=== PATIENT | female | born 1980 | race Caucasian/White ===

== ENCOUNTER 2017-09-05 16:18 | Inpatient (IN) | payer OTHER ==
[2017-09-05 17:24] VITALS: BMI 18.0
--- NOTE | 2017-09-05 18:57 | HP ---
COWS - Scale Resting Pulse: 0= [place] 80 or Below Sweatin=Flushed/Facial Moisture Restless Observation: 1= Difficult to Sit Still Pupil Size: 1= Pupils >than Normal Bone or Joint Aches: 1= Mild Discomfort Runny Nose/ Eye Tearin= Nasal Congestion GI Upset > 30mins: 0= None Tremor Observation: 1= Tremor [place], Not Seen Yawning Observation: 2= >3x During Session Anxiety or Irritability: 2=Irritable/Anxious Goose Flesh Skin: 3=Piloerection COWS Score: 14 Admission ROS S - HPI Chief Complaint: "I am here heroin detox" Allergies/Adverse Reactions: Allergies Allergy/AdvReac Type Severity Reaction Status Date / Time No Known Drug Allergies Allergy Verified 09/05/17 17:33 History of Present Illness: 37 y/o female with a 6 year history of heroin addiction presents for detox. This is pt's first visit. Has one year of sobriety x "a long time ago". Hx of depression, denies any medical hx Exam Limitations: Other (very Sleepy) - Ebola screening Have you traveled outside of the country in the last 21 days: No Have you had contact with anyone from an Ebola affected area: No Have you been sick,other than usual withdrawal symptoms: No Do you have a fever: No - Review of Systems Constitutional: Unintentional Wgt. Loss EENT: reports: Nose Congestion, Other (short sighted, wears glasses) Respiratory: reports: No Symptoms reported Cardiac: reports: No Symptoms Reported GI: reports: No Symptoms Reported Musculoskeletal: reports: No Symptoms Reported Integumentary: reports: No Symptoms Reported, Other (healed cut walter to L arm, track walter in both arms) Neuro: reports: Tremors Hematology: reports: No Symptoms Reported Psychiatric: reports: Agitated, Depressed Other Systems: Reviewed and Negative Patient History - Patient Medical History Hx Anemia: No Hx Asthma: No Hx Chronic Obstructive Pulmonary Disease (COPD): No Hx Cancer: No Hx Cardiac Disorders: No Hx Congestive Heart Failure: No Hx Hypertension: No Hx Hypercholesterolemia: No Hx Pacemaker: No HX Cerebrovascular Accident: No Hx Seizures: No Hx Dementia: No Hx Diabetes: No Hx Gastrointestinal Disorders: No Hx Liver Disease: No Hx Genitourinary Disorders: No Hx Sexually Transmitted Disorders: No Hx Renal Disease (ESRD): No Hx Thyroid Disease: No Hx Human Immunodeficiency Virus (HIV): No Hx Hepatitis C: No Hx Depression: Yes Hx Suicide Attempt: Yes (2007, denies current idea nor attempt) Hx Bipolar Disorder: Yes (bipolar II) Hx Schizophrenia: No - Patient Surgical History Past Surgical History: No Hx Neurologic Surgery: No Hx Cataract Extraction: No Hx Cardiac Surgery: No Hx Lung Surgery: No Hx Breast Surgery: No Hx Breast Biopsy: No Hx Abdominal Surgery: No Hx Appendectomy: No Hx Cholecystectomy: No Hx Genitourinary Surgery: No Hx Section: No Hx Orthopedic Surgery: No Anesthesia Reaction: No - PPD History Previous Implant?: Yes Documented Results: Negative w/o proof Implanted On Prior R Admission?: No PPD to be Administered?: Yes - Reproductive History Patient is a Female of Child Bearing Age (11 -55 yrs old): Yes Patient : No - Smoking Cessation Smoking history: Current every day smoker Aproximately how many cigarettes per day: 20 Initiated information on smoking cessation: Yes 'Breaking Loose' booklet given: 09/05/17 - Substance & Tx. History Hx Alcohol Use: No Hx Substance Use: Yes Substance Use Type: Cocaine, Heroin, Marijuana - Substances Abused Heroin Route: Injection Frequency: Daily Amount used: 6-10 bags Age of first use: 30 Date of Last Use: 09/05/17 Crack Route: Smoking Frequency: 1-2 times per week Amount used: 2-3 bags Age of first use: 35 Date of Last Use: 09/02/17 Marijuana/Hashish Route: Smoking Frequency: Daily Amount used: 3 sticks Age of first use: 14 Date of Last Use: 09/04/17 Family Disease History - Family Disease History Family History: Unremarkable Admission Physical Exam [facility] - Vital Signs Vital Signs: Vital Signs - 24 hr 09/05/17 17:21 Temperature 98.9 F Pulse Rate 60 Respiratory 18 Rate Blood Pressure 135/84 - Physical General Appearance: Yes: Moderate Distress, Thin, Irritable HEENTM: Yes: Nasal Congestion Respiratory: Yes: Lungs Clear, Normal Breath Sounds, No Respiratory Distress, No Accessory Muscle Use Breast: Yes: Breast Exam Deferred Cardiology: Yes: Regular Rate Abdominal: Yes: Normal Bowel Sounds, Non Tender, Flat Genitourinary: Yes: Within Normal Limits Back: Yes: Within Normal Limits, Normal Inspection Musculoskeletal: Yes: full range of Motion, Gait Steady Integumentary: Yes: Track Walter (b/l arms), Other (healed cuttting scars) Lymphatic: Yes: Within Normal Limits Cleared for Admission S - Detox or Rehab [facility] Level of Care: Medically Managed Detox Regimen/Protocol: Methadone S Breath Alcohol Content Breath Alcohol Content: 0 Vital Signs - Vital Signs Vital Signs Refused: No Temperature: 98.9 F Temperature Source: Oral Pulse Rate: 60 Respiratory Rate: 17 Blood Pressure: 135/89 BP Location: Right Arm Blood Pressure Position: Sitting - Height Height: 5 ft 7 in - Weight Weight: 115 lb Weight Measurement Method: Standing Scale Body Mass Index (BMI): 18.0 Urine Pregancy Test - Result Urine Test Results: Negative- NO Line Present Urine Drug Screen - Results Drug Screen Negative: No Urine Drug Screen Results: THC-Marijuana, FREDRICK-Cocaine, OPI-Opiates, BZO- Benzodiazepines
[2017-09-05] MEDS ORDERED: LOPERAMIDE HCL 2 MG CAPSULE PO PRN (19:24)
[2017-09-05] MEDS ORDERED: guaiFENesin/D-METHORPHAN HB 10 ML UNIT-DOSE CUPS PO PRN (19:24)
[2017-09-05] MEDS ORDERED: NICOTINE POLACRILEX 2 MG GUM BUC PRN (19:24)
[2017-09-05] MEDS ORDERED: P-EPHED 60MG/TRIPROLIDI 2.5MG TABLET PO PRN (19:24)
[2017-09-05] MEDS ORDERED: MAGNESIUM CITRATE 300 ML BOTTLE PO PRN (19:24)
[2017-09-05] MEDS ORDERED: METHADONE HCL 10 MG TABLET (FOR DETOX USE ONLY) PO ONE ×2 (19:24→23:00)
[2017-09-05] MEDS ORDERED: ACETAMINOPHEN 325 MG TABLET (FP) PO PRN (19:24)
[2017-09-05] MEDS ORDERED: MENTHOL/PHENOL 1 EACH UD MM PRN (19:24)
[2017-09-05] MEDS ORDERED: MAGNESIUM HYDROX 2400MG/30ML ORAL SUSPENSION 30 ML CUP PO PRN (19:24)
[2017-09-05] MEDS ORDERED: IBUPROFEN 400 MG TABLET (FP) PO PRN (19:24)
[2017-09-05] MEDS ORDERED: MAG HYDROX/AL HYDROX/SIMETH 30 ML UNIT-DOSE CUP PO PRN (19:24)
[2017-09-05] MEDS ORDERED: METHADONE HCL 10 MG TABLET (FOR DETOX USE ONLY) ONE (23:27)
[2017-09-05] MEDS: NICOTINE 21 MG/24 HOURS TOPICAL PATCH TD SCH (23:38)
[2017-09-05] MEDS: THIAMINE HCL 100 MG TABLET (FP) PO SCH (23:39)
[2017-09-06] LABS: URINE APPEARANCE CLEAR; URINE BILIRUBIN NEGATIVE (NEGATIVE); URINE BLOOD NEGATIVE (NEGATIVE); URINE COLOR STRAW; URINE GLUCOSE (UA) NEGATIVE (NEGATIVE); URINE KETONE NEGATIVE (NEGATIVE); URINE LEUK ESTERASE NEGATIVE (NEGATIVE); URINE NITRITE NEGATIVE (NEGATIVE); URINE PROTEIN NEGATIVE (NEGATIVE); URINE UROBILINOGEN NEGATIVE mg/dL (0.2-1.0)
[2017-09-06] MEDS ORDERED: METHADONE HCL 10 MG TABLET (FOR DETOX USE ONLY) PO ONE (10:00)
[2017-09-06 10:08] LABS: HEMATOCRIT 38.5 % (32.4-45.2); HEMOGLOBIN 13.1 GM/dL (10.7-15.3); MCH 29.2 pg (25.7-33.7); MEAN CELL VOLUME 85.8 fl (80-96); MEAN PLT VOLUME 8.6 fl (7.5-11.1); PLATELET COUNT 238 K/MM3 (134-434); RBC 4.49 M/mm3 (3.60-5.2); RDW 13.4 % (11.6-15.6); WHITE BLOOD COUNT 7.2 K/mm3 (4.0-10.0)
[2017-09-06 10:15] LABS: CHLORIDE 108 mmol/L (98-107); POTASSIUM 4.2 mmol/L (3.5-5.1); SODIUM 140 mmol/L (136-145)
[2017-09-06 10:21] LABS: ALBUMIN 3.5 g/dl (3.4-5.0); ALK PHOS 82 U/L (45-117); ANION GAP 6 (8-16); BILIRUBIN,TOTAL 0.6 mg/dL (0.2-1.0); BLOOD UREA NITROGEN 8 mg/dL (7-18); CALCIUM 8.2 mg/dL (8.5-10.1); CO2 26 mmol/L (21-32); CREATININE 0.6 mg/dL (0.55-1.02); GLUCOSE,RANDOM 90 mg/dL (74-106); SGOT/AST 46 U/L (15-37); SGPT/ALT 54 U/L (12-78); TOT PROT 6.6 g/dl (6.4-8.2)
--- NOTE | 2017-09-06 10:27 | PN ---
[facility] COWS - Scale Resting Pulse: 0= [place] 80 or Below Sweatin= Chills/Flushing Restless Observation: 1= Difficult to Sit Still Pupil Size: 1= Pupils >than Normal Bone or Joint Aches: 2= Severe Diffuse Aches Runny Nose/ Eye Tearin= Runny Nose/Eyes GI Upset > 30mins: 1= Stomach Cramp Tremor Observation of Outstretched Hands: 1= Tremor [place], Not Seen Yawning Observation: 2= >3x During Session Anxiety or Irritability: 2=Irritable/Anxious Goose Flesh Skin: 0=Smooth Skin COWS Score: 13 S Progress Note (SOAP) Subjective: sweat restlessness running nose body ache GI distress Objective: 09/06/17 10:30 Vital Signs Temperature 97.2 F L 09/06/17 06:32 Pulse Rate 46 L 09/06/17 06:32 Respiratory Rate 16 09/06/17 06:32 Blood Pressure 138/65 09/06/17 06:32 O2 Sat by Pulse Oximetry (%) Laboratory Last Values WBC 7.2 K/mm3 (4.0-10.0) 09/06/17 07:00 RBC 4.49 M/mm3 (3.60-5.2) 09/06/17 07:00 Hgb 13.1 GM/dL (10.7-15.3) 09/06/17 07:00 Hct 38.5 % (32.4-45.2) 09/06/17 07:00 MCV 85.8 fl (80-96) 09/06/17 07:00 MCH 29.2 pg (25.7-33.7) 09/06/17 07:00 MCHC 34.0 g/dl (32.0-36.0) 09/06/17 07:00 RDW 13.4 % (11.6-15.6) 09/06/17 07:00 Plt Count 238 K/MM3 (134-434) 09/06/17 07:00 MPV 8.6 fl (7.5-11.1) 09/06/17 07:00 Sodium 140 mmol/L (136-145) 09/06/17 07:00 Potassium 4.2 mmol/L (3.5-5.1) 09/06/17 07:00 Chloride 108 mmol/L (98-107) H 09/06/17 07:00 Carbon Dioxide 26 mmol/L (21-32) 09/06/17 07:00 Anion Gap 6 (8-16) L 09/06/17 07:00 BUN 8 mg/dL (7-18) 09/06/17 07:00 Creatinine 0.6 mg/dL (0.55-1.02) 09/06/17 07:00 Creat Clearance w eGFR > 60 (>60) 09/06/17 07:00 Random Glucose 90 mg/dL (74-106) 09/06/17 07:00 Calcium 8.2 mg/dL (8.5-10.1) L 09/06/17 07:00 Total Bilirubin 0.6 mg/dL (0.2-1.0) 09/06/17 07:00 AST 46 U/L (15-37) H 09/06/17 07:00 ALT 54 U/L (12-78) 09/06/17 07:00 Alkaline Phosphatase 82 U/L (45-117) 09/06/17 07:00 Total Protein 6.6 g/dl (6.4-8.2) 09/06/17 07:00 Albumin 3.5 g/dl (3.4-5.0) 09/06/17 07:00 Urine Color Straw 09/05/17 20:00 Urine Appearance Clear 09/05/17 20:00 Urine pH 6.0 (5.0-8.0) 09/05/17 20:00 Ur Specific [place] 1.008 (1.001-1.035) 09/05/17 20:00 Urine Protein Negative (NEGATIVE) 09/05/17 20:00 Urine Glucose (UA) Negative (NEGATIVE) 09/05/17 20:00 Urine Ketones Negative (NEGATIVE) 09/05/17 20:00 Urine Blood Negative (NEGATIVE) 09/05/17 20:00 Urine Nitrite Negative (NEGATIVE) 09/05/17 20:00 Urine Bilirubin Negative (NEGATIVE) 09/05/17 20:00 Urine Urobilinogen Negative mg/dL (0.2-1.0) 09/05/17 20:00 Ur Leukocyte Esterase Negative (NEGATIVE) 09/05/17 20:00 lab noted Assessment: 09/06/17 10:30 withdrawal sx Plan: continue detox
[2017-09-06] MEDS: PRENATAL VITAMINS W/ FOLIC ACID TABLET (FP) PO SCH (10:52)
[2017-09-06] MEDS: diazePAM 5 MG TABLET PO PRN ×2 (10:52→20:13)
[2017-09-06] MEDS: NICOTINE 21 MG/24 HOURS TOPICAL PATCH TD SCH (10:53)
--- NOTE | 2017-09-06 11:04 | CONSULT ---
[facility] Psychiatric Consult - Data Date of interview: 09/06/17 Admission source: [facility] Identifying data: This is 37 years old female, single, unemoployed, living alone , on PA, with no psychiatric hospitalization history, is here for detoxofications with Cocaine, Heroin, Cannabis and Nicotine. This is first detoxification visit for this patient. Substance Abuse History: Smoking history: Current every day smoker. Aproximately how many cigarettes per day: 20. Initiated information on smoking cessation: Yes. 'Breaking Loose' booklet given: 09/05/17. - Substance & Tx. History. Hx Alcohol Use: No. Hx Substance Use: Yes. Substance Use Type: Cocaine, Heroin, Marijuana. - Substances Abused. Heroin. Route: Injection. Frequency: Daily. Amount used: 6-10 bags. Age of first use: 30. Date of Last Use: 09/05/17. Crack. Route: Smoking. Frequency: 1-2 times per week. Amount used: 2-3 bags. Age of first use: 35. Date of Last Use: 02/12. Marijuana/Hashish. Route: Smoking. Frequency: Daily. Amount used: 3 sticks. Age of first use: 14. Date of Last Use: 09/04/17 Medical History: Denies significant medical problems Psychiatric History: Patient reports no past psychiatric history Physical/Sexual Abuse/Trauma History: Denies, unclear Additional Comment: Observation. Detox Unit Carte Protocol Mental Status Exam - Mental Status Exam Alert and Oriented to: Person Cognitive Function: Fair Patient Appearance: Unkempt Mood: Sad Affect: Flat Patient Behavior: Sedated Speech Pattern: Delayed Voice Loudness: Moderately Soft/Quiet Thought Process: Circumstantial Thought Disorder: Being Controlled Hallucinations: Denies Suicidal Ideation: Denies Homicidal Ideation: Denies Insight/Judgement: Fair Sleep: Difficulty falling asleep Appetite: Weight loss Muscle strength/Tone: Mild Hypotonicity Gait/Station: Shuffling Additional Comments: Observation. Detox Unit Care Protocol Psychiatric Findings - Problem List ([place] 1, 2,3) (1) Drug-induced mood disorder Current Visit: Yes Status: Acute (2) Cocaine dependence Current Visit: Yes Status: Acute (3) Marijuana dependence Current Visit: Yes Status: Acute (4) Nicotine dependence Current Visit: Yes Status: Acute (5) Uncomplicated opioid dependence Current Visit: Yes Status: Acute - Initial Treatment Plan Initial Treatment Plan: Observation. Detox Unit Care Protocol
[2017-09-06] MEDS ORDERED: ONDANSETRON *ODT* 4 MG TABLET SL PRN (11:54)
--- NOTE | 2017-09-06 16:07 | EKG ---
Test Reason : Blood Pressure : / mmHG Vent. Rate : 047 BPM Atrial Rate : 047 BPM P-R Int : 134 ms QRS Dur : 088 ms QT Int : 450 ms P-R-T Axes : 059 067 056 degrees QTc Int : 398 ms SINUS BRADYCARDIA WITH SINUS ARRHYTHMIA OTHERWISE NORMAL ECG NO PREVIOUS ECGS AVAILABLE Confirmed by ALEXANDRIA MCKEON MD ([id number]) on 09/06/2017 4:06:48 PM Referred By: Michel Bhatia Confirmed By:ALEXANDRIA MCKEON MD
[2017-09-06] MEDS: THIAMINE HCL 100 MG TABLET (FP) PO SCH (22:41)
[2017-09-06] MEDS: hydrOXYzine PAMOATE 50 MG CAPSULE (FP) PO PRN (22:41)
[2017-09-07] MEDS ORDERED: METHADONE HCL 5 MG TABLET (FOR DETOX USE ONLY) PO ONE (10:00)
[2017-09-07] MEDS: METHOCARBAMOL 500 MG TABLET PO PRN ×2 (10:19→22:37)
[2017-09-07] MEDS: PRENATAL VITAMINS W/ FOLIC ACID TABLET (FP) PO SCH (10:19)
[2017-09-07] MEDS: diazePAM 5 MG TABLET PO PRN ×4 (10:19→23:18)
[2017-09-07] MEDS: NICOTINE 21 MG/24 HOURS TOPICAL PATCH TD SCH (10:20)
[2017-09-07] MEDS ORDERED: ASPIRIN 81 MG CHEWABLE TABLETS PO SCH (12:00)
--- NOTE | 2017-09-07 12:03 | PN ---
[facility] CIWA - CIWA Score Nausea/Vomitin-Mild Nausea/No Vomiting Muscle Tremors: 3 Anxiety: 3 Agitation: 3 Paroxysmal Sweats: 1-Minimal Palms Moist Orientation: 0-Oriented Tacttile Disturbances: 0-None Auditory Disturbances: 0-None Visual Disturbances: 0-None Headache: 0-None Present CIWA-Ar Total Score: 11 S Progress Note (SOAP) Subjective: sweat tremor anxiety irritable restlessness mild gi distress Objective: 09/07/17 12:02 Vital Signs Temperature 97.9 F 09/07/17 10:15 Pulse Rate 64 09/07/17 10:15 Respiratory Rate 16 09/07/17 10:15 Blood Pressure 113/66 09/07/17 10:15 O2 Sat by Pulse Oximetry (%) Laboratory Last Values WBC 7.2 K/mm3 (4.0-10.0) 09/06/17 07:00 RBC 4.49 M/mm3 (3.60-5.2) 09/06/17 07:00 Hgb 13.1 GM/dL (10.7-15.3) 09/06/17 07:00 Hct 38.5 % (32.4-45.2) 09/06/17 07:00 MCV 85.8 fl (80-96) 09/06/17 07:00 MCH 29.2 pg (25.7-33.7) 09/06/17 07:00 MCHC 34.0 g/dl (32.0-36.0) 09/06/17 07:00 RDW 13.4 % (11.6-15.6) 09/06/17 07:00 Plt Count 238 K/MM3 (134-434) 09/06/17 07:00 MPV 8.6 fl (7.5-11.1) 09/06/17 07:00 Sodium 140 mmol/L (136-145) 09/06/17 07:00 Potassium 4.2 mmol/L (3.5-5.1) 09/06/17 07:00 Chloride 108 mmol/L (98-107) H 09/06/17 07:00 Carbon Dioxide 26 mmol/L (21-32) 09/06/17 07:00 Anion Gap 6 (8-16) L 09/06/17 07:00 BUN 8 mg/dL (7-18) 09/06/17 07:00 Creatinine 0.6 mg/dL (0.55-1.02) 09/06/17 07:00 Creat Clearance w eGFR > 60 (>60) 09/06/17 07:00 Random Glucose 90 mg/dL (74-106) 09/06/17 07:00 Calcium 8.2 mg/dL (8.5-10.1) L 09/06/17 07:00 Total Bilirubin 0.6 mg/dL (0.2-1.0) 09/06/17 07:00 AST 46 U/L (15-37) H 09/06/17 07:00 ALT 54 U/L (12-78) 09/06/17 07:00 Alkaline Phosphatase 82 U/L (45-117) 09/06/17 07:00 Total Protein 6.6 g/dl (6.4-8.2) 09/06/17 07:00 Albumin 3.5 g/dl (3.4-5.0) 09/06/17 07:00 Urine Color Straw 09/05/17 20:00 Urine Appearance Clear 09/05/17 20:00 Urine pH 6.0 (5.0-8.0) 09/05/17 20:00 Ur Specific [place] 1.008 (1.001-1.035) 09/05/17 20:00 Urine Protein Negative (NEGATIVE) 09/05/17 20:00 Urine Glucose (UA) Negative (NEGATIVE) 09/05/17 20:00 Urine Ketones Negative (NEGATIVE) 09/05/17 20:00 Urine Blood Negative (NEGATIVE) 09/05/17 20:00 Urine Nitrite Negative (NEGATIVE) 09/05/17 20:00 Urine Bilirubin Negative (NEGATIVE) 09/05/17 20:00 Urine Urobilinogen Negative mg/dL (0.2-1.0) 09/05/17 20:00 Ur Leukocyte Esterase Negative (NEGATIVE) 09/05/17 20:00 RPR Titer Nonreactive (NONREACTIVE) 09/06/17 07:00 lab noted Assessment: 09/07/17 12:02 withdrawal sx Plan: continue detox
[2017-09-07] MEDS: hydrOXYzine PAMOATE 50 MG CAPSULE (FP) PO PRN (22:37)
[2017-09-07] MEDS: THIAMINE HCL 100 MG TABLET (FP) PO SCH (22:37)
[2017-09-08] MEDS: diazePAM 5 MG TABLET PO PRN (07:17)
[2017-09-08] MEDS ORDERED: METHADONE HCL 5 MG TABLET (FOR DETOX USE ONLY) PO ONE (10:00)
[2017-09-08 10:53] VITALS: BP 139/98; PULSE 74; TEMP 97.3
--- NOTE | 2017-09-08 12:28 | DS ---
[facility] Detox Discharge Summary Admission Date: 09/05/17 Discharge Date: 09/08/17 - History Present History: Opioid Dependence Additional Comments: 37 years old female admitted for opiates detox, insists to terminate the detox regimen today patient is alert oriented x 3 steady gait coherent denies suicidal denies homocidal health teaching on the complications of opiate misuse and the benefit of healthy life style patient denies medical history cardiac S1S2 no gallops pulmonary clear bilaterally chest symmetry with respirations, no wheezes, no diaphragmatic excursion abdomen soft no tenderness no rebound none costovertebral angle tenderness musculoskeletal stable no weakness - Physical Exam Results Vital Signs: Vital Signs Temperature 97.3 F L 09/08/17 10:53 Pulse Rate 74 09/08/17 10:53 Respiratory Rate 18 09/08/17 10:53 Blood Pressure 139/98 09/08/17 10:53 O2 Sat by Pulse Oximetry (%) Pertinent Admission Physical Exam Findings: withdrawal sx Vital Signs Temperature 97.3 F L 09/08/17 10:53 Pulse Rate 74 09/08/17 10:53 Respiratory Rate 18 09/08/17 10:53 Blood Pressure 139/98 09/08/17 10:53 O2 Sat by Pulse Oximetry (%) Laboratory Last Values WBC 7.2 K/mm3 (4.0-10.0) 09/06/17 07:00 RBC 4.49 M/mm3 (3.60-5.2) 09/06/17 07:00 Hgb 13.1 GM/dL (10.7-15.3) 09/06/17 07:00 Hct 38.5 % (32.4-45.2) 09/06/17 07:00 MCV 85.8 fl (80-96) 09/06/17 07:00 MCH 29.2 pg (25.7-33.7) 09/06/17 07:00 MCHC 34.0 g/dl (32.0-36.0) 09/06/17 07:00 RDW 13.4 % (11.6-15.6) 09/06/17 07:00 Plt Count 238 K/MM3 (134-434) 09/06/17 07:00 MPV 8.6 fl (7.5-11.1) 09/06/17 07:00 Sodium 140 mmol/L (136-145) 09/06/17 07:00 Potassium 4.2 mmol/L (3.5-5.1) 09/06/17 07:00 Chloride 108 mmol/L (98-107) H 09/06/17 07:00 Carbon Dioxide 26 mmol/L (21-32) 09/06/17 07:00 Anion Gap 6 (8-16) L 09/06/17 07:00 BUN 8 mg/dL (7-18) 09/06/17 07:00 Creatinine 0.6 mg/dL (0.55-1.02) 09/06/17 07:00 Creat Clearance w eGFR > 60 (>60) 09/06/17 07:00 Random Glucose 90 mg/dL (74-106) 09/06/17 07:00 Calcium 8.2 mg/dL (8.5-10.1) L 09/06/17 07:00 Total Bilirubin 0.6 mg/dL (0.2-1.0) 09/06/17 07:00 AST 46 U/L (15-37) H 09/06/17 07:00 ALT 54 U/L (12-78) 09/06/17 07:00 Alkaline Phosphatase 82 U/L (45-117) 09/06/17 07:00 Total Protein 6.6 g/dl (6.4-8.2) 09/06/17 07:00 Albumin 3.5 g/dl (3.4-5.0) 09/06/17 07:00 Urine Color Straw 09/05/17 20:00 Urine Appearance Clear 09/05/17 20:00 Urine pH 6.0 (5.0-8.0) 09/05/17 20:00 Ur Specific [place] 1.008 (1.001-1.035) 09/05/17 20:00 Urine Protein Negative (NEGATIVE) 09/05/17 20:00 Urine Glucose (UA) Negative (NEGATIVE) 09/05/17 20:00 Urine Ketones Negative (NEGATIVE) 09/05/17 20:00 Urine Blood Negative (NEGATIVE) 09/05/17 20:00 Urine Nitrite Negative (NEGATIVE) 09/05/17 20:00 Urine Bilirubin Negative (NEGATIVE) 09/05/17 20:00 Urine Urobilinogen Negative mg/dL (0.2-1.0) 09/05/17 20:00 Ur Leukocyte Esterase Negative (NEGATIVE) 09/05/17 20:00 RPR Titer Nonreactive (NONREACTIVE) 09/06/17 07:00 lab noted - Treatment Hospital Course: Detox Protocol Followed, Responded well - Medication Discharge Medications: Ambulatory Orders Unobtainable [Unobtainable] 09/05/17 - Diagnosis (1) Uncomplicated opioid dependence Status: Acute - AMA Did Patient Leave Against Medical Advice: Yes
--- NOTE | 2017-09-08 12:37 | PN ---
[facility] Progress Note (SOAP) Subjective: see additional comments in discharged summary Objective: 09/08/17 12:39 Vital Signs Temperature 97.3 F L 09/08/17 10:53 Pulse Rate 74 09/08/17 10:53 Respiratory Rate 18 09/08/17 10:53 Blood Pressure 139/98 09/08/17 10:53 O2 Sat by Pulse Oximetry (%) Laboratory Last Values WBC 7.2 K/mm3 (4.0-10.0) 09/06/17 07:00 RBC 4.49 M/mm3 (3.60-5.2) 09/06/17 07:00 Hgb 13.1 GM/dL (10.7-15.3) 09/06/17 07:00 Hct 38.5 % (32.4-45.2) 09/06/17 07:00 MCV 85.8 fl (80-96) 09/06/17 07:00 MCH 29.2 pg (25.7-33.7) 09/06/17 07:00 MCHC 34.0 g/dl (32.0-36.0) 09/06/17 07:00 RDW 13.4 % (11.6-15.6) 09/06/17 07:00 Plt Count 238 K/MM3 (134-434) 09/06/17 07:00 MPV 8.6 fl (7.5-11.1) 09/06/17 07:00 Sodium 140 mmol/L (136-145) 09/06/17 07:00 Potassium 4.2 mmol/L (3.5-5.1) 09/06/17 07:00 Chloride 108 mmol/L (98-107) H 09/06/17 07:00 Carbon Dioxide 26 mmol/L (21-32) 09/06/17 07:00 Anion Gap 6 (8-16) L 09/06/17 07:00 BUN 8 mg/dL (7-18) 09/06/17 07:00 Creatinine 0.6 mg/dL (0.55-1.02) 09/06/17 07:00 Creat Clearance w eGFR > 60 (>60) 09/06/17 07:00 Random Glucose 90 mg/dL (74-106) 09/06/17 07:00 Calcium 8.2 mg/dL (8.5-10.1) L 09/06/17 07:00 Total Bilirubin 0.6 mg/dL (0.2-1.0) 09/06/17 07:00 AST 46 U/L (15-37) H 09/06/17 07:00 ALT 54 U/L (12-78) 09/06/17 07:00 Alkaline Phosphatase 82 U/L (45-117) 09/06/17 07:00 Total Protein 6.6 g/dl (6.4-8.2) 09/06/17 07:00 Albumin 3.5 g/dl (3.4-5.0) 09/06/17 07:00 Urine Color Straw 09/05/17 20:00 Urine Appearance Clear 09/05/17 20:00 Urine pH 6.0 (5.0-8.0) 09/05/17 20:00 Ur Specific [place] 1.008 (1.001-1.035) 09/05/17 20:00 Urine Protein Negative (NEGATIVE) 09/05/17 20:00 Urine Glucose (UA) Negative (NEGATIVE) 09/05/17 20:00 Urine Ketones Negative (NEGATIVE) 09/05/17 20:00 Urine Blood Negative (NEGATIVE) 09/05/17 20:00 Urine Nitrite Negative (NEGATIVE) 09/05/17 20:00 Urine Bilirubin Negative (NEGATIVE) 09/05/17 20:00 Urine Urobilinogen Negative mg/dL (0.2-1.0) 09/05/17 20:00 Ur Leukocyte Esterase Negative (NEGATIVE) 09/05/17 20:00 RPR Titer Nonreactive (NONREACTIVE) 09/06/17 07:00 lab noted Assessment: 09/08/17 12:39 left the detox unit against medical advice Plan: no e prescription
[2017-09-09] MEDS ORDERED: METHADONE HCL 10 MG TABLET (FOR DETOX USE ONLY) PO ONE (10:00)
[2017-09-10] MEDS ORDERED: METHADONE HCL 5 MG TABLET (FOR DETOX USE ONLY) PO ONE (06:00)
== END 2017-09-08 10:10 | disposition left against medical advice (07) | DRG 770 ==
LOC: YASAS 16:18 → Y6N 17:57
PROVIDERS: ADMIT Internal Medicine; ATTEND Internal Medicine
PROC: HZ2ZZZZ Detoxification Services for Substance Abuse Treatment (ICD-10-PCS; principal; 2017-09-05)
DX: F11.23 Opioid dependence with withdrawal (principal); F14.20 Cocaine dependence, uncomplicated; F12.20 Cannabis dependence, uncomplicated; F17.210 Nicotine dependence, cigarettes, uncomplicated; F19.24 Other psychoactive substance dependence with psychoactive substance-induced mood disorder; Z91.5 Personal history of self-harm
CPT/HCPCS: 36415; 71046-TC-FY; 80053; 81003; 85027; 86593; 93005; 93010